=== PATIENT | female | born 1985 | race Caucasian/White ===

== ENCOUNTER 2019-10-18 00:16 | Observation (INO) ==
[2019-10-18 01:19] LABS: Bilirubin,Urine Negative (Negative); Blood,Urine Moderate (Negative); Clarity,Urine Clear (Clear); Color,Urine Yellow (Yellow); Glucose,Urine (UA) Normal (Normal); Ketones,Urine Negative (Negative); Leukocyte Esterase,Urine Moderate (Negative); Nitrite,Urine Negative (Negative); Protein,Urine Trace mg/dL (Neg-Trace); Specific Gravity,Urine > 1.030 (1.010-1.025); Urobilinogen,Urine Normal (Normal)
[2019-10-18 01:21] LABS: Bacteria,Urine Few per hpf (None-Few); Hyaline Casts,Urine None Seen per lpf (None-Few); Squamous Epithelial Cell,Urine Many per lpf (None-Few)
[2019-10-18 01:33] LABS: Amphetamine Screen,Urine Negative ng/mL (Cutoff=1000); Barbiturate Screen,Urine Negative ng/mL (Cutoff=200); Benzodiazepines Screen,Urine Negative ng/mL (Cutoff=200); Cannabinoid Screen,Urine Negative ng/mL (Cutoff = 50); Cocaine Screen,Urine Negative ng/mL (Cutoff= 300); Opiate Screen,Urine Negative ng/mL (Cutoff=300); Phencyclidine Screen,Urine Negative ng/mL (Cutoff=25)
[2019-10-18 01:42] LABS: RBC,Urine 0-3 per hpf (0-3); Transitional Epi Cells,Urine Few per hpf (None-Few)
[2019-10-18 01:47] LABS: Basophils % 0.4 %; Eosinophils # 0.1 K/mcL (0.0-0.6); Eosinophils % 0.5 %; Hematocrit 39.2 % (35.3-44.9); Hemoglobin 12.4 g/dL (11.5-15.4); Immature Granulocytes % 0.3 % (0-4); Lymphocytes # 3.2 K/mcL (0.6-4.6); Lymphocytes % 33.6 %; Mean Corpuscular HGB Conc 31.6 g/dL (31.6-35.5); Mean Corpuscular Hemoglobin 29.9 pg (28.0-33.3); Mean Corpuscular Volume 94.5 fL (83.0-100.0); Mean Platelet Volume 11.4 fL (9.4-12.4); Monocytes # 0.7 K/mcL (0.0-1.3); Monocytes % 7.4 %; Neutrophils # 5.5 K/mcL (1.6-8.9); Platelet Count 274 K/mcL (140-400); Red Blood Count 4.15 M/mcL (3.82-4.97); Red Cell Distribution Width 13.2 % (11.5-14.5); Segmented Neutrophils % 57.8 %; White Blood Count 9.6 K/mcL (4.3-11.1)
[2019-10-18 01:58] LABS: Acetaminophen < 10 mcg/mL (10-20); BUN/Creatinine Ratio 16 (6-26); Blood Urea Nitrogen 18 mg/dL (6-20); Calcium 9.3 mg/dL (8.6-10.3); Carbon Dioxide 23 mEq/L (23-29); Chloride 108 mEq/L (98-107); Chol/HDL Ratio 2.9 (0-4.9); Cholesterol 152 mg/dL (< 200); Ethanol < 10 mg/dL (Less than 10); Glucose 81 mg/dL (70-105); HDL Cholesterol 53 mg/dL (40-59); LDL Cholesterol,Calculated 82 mg/dL (0-99); Osmolality,Calculated 293 (280-300); Potassium 3.6 mEq/L (3.5-5.1); Salicylate < 2.5 mg/dL (15.0-30.0); Sodium 141 mEq/L (136-145); Triglycerides 84 mg/dL (< 150); eGFR For African Americans > 60 (> 60); eGFR For Non-African Americans 55 (> 60)
[2019-10-18 06:41] LABS: Estimated Average Glucose 111 mg/dl
[2019-10-18] MEDS ORDERED: *HR* LORazepam 2 MG/ML VIAL IM PRN (07:24)
[2019-10-18] MEDS ORDERED: *HR* LORazepam 1 MG TABLET PO PRN (07:24)
[2019-10-18] MEDS ORDERED: hydrOXYzine pamoate 25 MG CAPSULE PO PRN (07:24)
[2019-10-18] MEDS ORDERED: Ibuprofen 400 MG TABLET PO PRN (07:24)
[2019-10-18] MEDS ORDERED: Mag Hydrox/Al Hydrox/Simeth 30 ML UDC PO PRN (07:24)
[2019-10-18] MEDS ORDERED: MOM Conc 10 ML UD.LIQ PO PRN (07:24)
[2019-10-18] MEDS ORDERED: Haloperidol Lactate 5 MG/ML VIAL IM PRN (07:24)
[2019-10-18] MEDS ORDERED: traZODone 50 MG TABLET PO PRN (07:24)
[2019-10-18 20:45] VITALS: BP 122/69
== END 2019-10-18 11:56 | disposition other institution (70) ==
LOC: EMEROOARM 00:16 → 1ANU 00:16
PROVIDERS: ADMIT Psychiatry & Neurology Psychiatry; ATTEND Psychiatry & Neurology Psychiatry

== ENCOUNTER 2019-10-18 10:42 | Observation (INO) ==
[2019-10-18] MEDS ORDERED: Ondansetron 4 MG/2 ML VIAL IVP PRN ×2 (13:04→22:02)
[2019-10-18] MEDS ORDERED: Naloxone 0.4 MG/ML INJ IVP PRN ×2 (13:05→22:02)
[2019-10-18] MEDS ORDERED: Ketorolac 15 MG/ML VIAL IVP PRN ×2 (13:05→22:02)
[2019-10-18] MEDS ORDERED: Ketorolac 30 MG/ML VIAL IVP PRN (13:05)
[2019-10-18] MEDS ORDERED: Ringers Solution, Lactated 1,000 ML IVC SCH ×2 (13:30→22:02)
[2019-10-18 13:36] LABS: Basophils # 0.1 K/mcL (0.0-0.2); Basophils % 0.5 %; Eosinophils # 0.1 K/mcL (0.0-0.6); Eosinophils % 0.5 %; Hemoglobin 12.8 g/dL (11.5-15.4); Immature Granulocytes % 0.3 % (0-4); Lymphocytes # 2.3 K/mcL (0.6-4.6); Mean Corpuscular HGB Conc 33.7 g/dL (31.6-35.5); Mean Corpuscular Hemoglobin 30.4 pg (28.0-33.3); Mean Corpuscular Volume 90.3 fL (83.0-100.0); Mean Platelet Volume 11.2 fL (9.4-12.4); Monocytes # 0.7 K/mcL (0.0-1.3); Monocytes % 7.6 %; Neutrophils # 6.3 K/mcL (1.6-8.9); Platelet Count 270 K/mcL (140-400); Red Blood Count 4.21 M/mcL (3.82-4.97); Red Cell Distribution Width 13.2 % (11.5-14.5); Segmented Neutrophils % 67.1 %; White Blood Count 9.4 K/mcL (4.3-11.1)
[2019-10-18 13:44] LABS: INR 1.1
[2019-10-18 13:57] LABS: BUN/Creatinine Ratio 18 (6-26); Blood Urea Nitrogen 17 mg/dL (6-20); Calcium 9.3 mg/dL (8.6-10.3); Carbon Dioxide 23 mEq/L (23-29); Chloride 110 mEq/L (98-107); Glucose 70 mg/dL (70-105); Osmolality,Calculated 294 (280-300); Potassium 3.8 mEq/L (3.5-5.1); Sodium 142 mEq/L (136-145); eGFR For African Americans > 60 (> 60); eGFR For Non-African Americans > 60 (> 60)
[2019-10-18] MEDS ORDERED: levETIRAcetam 250 MG TABLET PO SCH (18:00)
[2019-10-18] MEDS ORDERED: CeFAZolin Syr 2,000MG/20 ML 2,000 MG/20 ML SYRINGE IVPB ONE (18:43)
[2019-10-18] MEDS ORDERED: Ondansetron 4 MG/2 ML VIAL IVP ONE ×2 (19:00→22:02)
[2019-10-18] MEDS ORDERED: *HR* Promethazine 25 MG/ML VIAL IVP PRN ×2 (19:00→22:02)
[2019-10-18] MEDS ORDERED: Lidocaine -MPF 2% 2 ML VIAL ONE (19:29)
[2019-10-18] MEDS ORDERED: *HR* Propofol 200 MG/20 ML VIAL IVP ONE (19:30)
[2019-10-18] MEDS ORDERED: *HR* FentaNYL (PF) 100 MCG/2 ML VIAL ONE (19:30)
[2019-10-18] MEDS ORDERED: *HR* Succinylcholine 200 MG/10 ML VIAL IVP ONE (19:33)
[2019-10-18] MEDS ORDERED: *HR* Rocuronium Bromide 50 MG/5 ML VIAL ONE (19:33)
[2019-10-18] MEDS ORDERED: Bupivacaine/EPI 1:200k 0.5%PF 10 ML VIAL ONE (19:37)
[2019-10-18] MEDS ORDERED: Ondansetron 4 MG/2 ML VIAL ONE (19:55)
[2019-10-18] MEDS ORDERED: Dexamethasone 4 MG/ML VIAL ONE (19:55)
[2019-10-18] MEDS: *HR* HYDROmorphone (PF) 1 MG/ML SYRINGE IVP PRN ×2 (21:14→21:29)
[2019-10-18] MEDS ORDERED: *HR* HYDROmorphone (PF) 1 MG/ML SYRINGE IVP PRN (22:02)
[2019-10-19] MEDS: Ketorolac 30 MG/ML VIAL IVP PRN ×2 (00:12→08:17)
[2019-10-19] MEDS ORDERED: levETIRAcetam 250 MG TABLET PO SCH (06:00)
[2019-10-19] MEDS ORDERED: cephALEXin 500 MG CAPSULE PO SCH (09:00)
[2019-10-19 11:11] VITALS: BP 107/71
== END 2019-10-19 16:40 | disposition home or self-care (01) ==
LOC: 3NENU → SUATTDRO 12:13
PROVIDERS: ADMIT Internal Medicine; ATTEND Internal Medicine

== ENCOUNTER 2020-09-08 16:17 | Observation (INO) ==
[2020-09-08] MEDS ORDERED: Isovue-370 500 ML BOTTLE IVP ONE (16:34)
[2020-09-08] MEDS ORDERED: Dexamethasone 4 MG/ML VIAL IVP ONE (16:34)
[2020-09-08] MEDS ORDERED: Ampicillin/Sulbactam 3,000 MG in 0.9 % Sodium Chloride Mini Bag 100 ML IVPB ONE (16:34)
[2020-09-08 17:11] LABS: Basophils # 0.1 K/mcL (0.0-0.2); Basophils % 0.4 %; Eosinophils % 0.2 %; Hematocrit 36.9 % (35.3-44.9); Hemoglobin 11.9 g/dL (11.5-15.4); Immature Granulocytes % 0.5 % (0-4); Lymphocytes # 1.4 K/mcL (0.6-4.6); Lymphocytes % 10.1 %; Mean Corpuscular HGB Conc 32.2 g/dL (31.6-35.5); Mean Corpuscular Hemoglobin 29.2 pg (28.0-33.3); Mean Corpuscular Volume 90.4 fL (83.0-100.0); Mean Platelet Volume 11.3 fL (9.4-12.4); Monocytes # 1.1 K/mcL (0.0-1.3); Monocytes % 8.2 %; Neutrophils # 10.9 K/mcL (1.6-8.9); Platelet Count 205 K/mcL (140-400); Red Blood Count 4.08 M/mcL (3.82-4.97); Segmented Neutrophils % 80.6 %; White Blood Count 13.5 K/mcL (4.3-11.1)
[2020-09-08] MEDS: 0.9 % Sodium Chloride 1,000 ML IVC SCH ×2 (17:17→22:33)
[2020-09-08 17:29] LABS: BUN/Creatinine Ratio 15 (6-26); Blood Urea Nitrogen 12 mg/dL (6-20); Calcium 8.9 mg/dL (8.6-10.3); Carbon Dioxide 27 mEq/L (23-29); Chloride 104 mEq/L (98-107); Glucose 86 mg/dL (70-105); Osmolality,Calculated 287 (280-300); Potassium 3.5 mEq/L (3.5-5.1); Sodium 139 mEq/L (136-145); eGFR For African Americans > 60 (> 60); eGFR For Non-African Americans > 60 (> 60)
[2020-09-08 18:18] LABS: C-Reactive Protein 130 mg/L (Less than 10)
[2020-09-08] MEDS ORDERED: Lidocaine Viscous Oral Soln 15 ML SOLUTION MM ONE (18:38)
[2020-09-08] MEDS ORDERED: 0.9 % Sodium Chloride 1,000 ML IVC ONE (20:16)
[2020-09-09] MEDS ORDERED: Naloxone 0.4 MG/ML INJ IVP PRN (00:09)
[2020-09-09] MEDS ORDERED: Ondansetron 4 MG/2 ML VIAL IVP PRN (00:09)
[2020-09-09] MEDS ORDERED: 0.9 % Sodium Chloride 1,000 ML IVC SCH (00:15)
[2020-09-09] MEDS ORDERED: Acetaminophen 325 MG TABLET PO PRN (00:36)
[2020-09-09] MEDS: Ampicillin/Sulbactam 3,000 MG in 0.9 % Sodium Chloride Mini Bag 100 ML IVPB SCH ×4 (00:47→16:52)
[2020-09-09] MEDS: methylPREDNISolone 125 MG/2 ML VIAL IVP SCH ×2 (00:47→05:53)
[2020-09-09 02:41] LABS: Hemoglobin 10.9 g/dL (11.5-15.4); Mean Corpuscular HGB Conc 32.1 g/dL (31.6-35.5); Mean Corpuscular Hemoglobin 29.5 pg (28.0-33.3); Mean Corpuscular Volume 92.1 fL (83.0-100.0); Mean Platelet Volume 11.5 fL (9.4-12.4); Platelet Count 217 K/mcL (140-400); Red Blood Count 3.69 M/mcL (3.82-4.97); Red Cell Distribution Width 12.7 % (11.5-14.5); White Blood Count 12.5 K/mcL (4.3-11.1)
[2020-09-09 03:02] LABS: BUN/Creatinine Ratio 21 (6-26); Blood Urea Nitrogen 13 mg/dL (6-20); Calcium 8.1 mg/dL (8.6-10.3); Carbon Dioxide 18 mEq/L (23-29); Chloride 108 mEq/L (98-107); Glucose 92 mg/dL (70-105); Osmolality,Calculated 284 (280-300); Potassium 3.9 mEq/L (3.5-5.1); Sodium 137 mEq/L (136-145); eGFR For African Americans > 60 (> 60); eGFR For Non-African Americans > 60 (> 60)
[2020-09-09] MEDS: *HR* Heparin 5,000 UNIT/ML VIAL SQ SCH ×2 (05:53→16:52)
[2020-09-09] MEDS: 0.9 % Sodium Chloride 1,000 ML IVC SCH ×2 (05:54→12:49)
[2020-09-09] MEDS: levETIRAcetam 250 MG TABLET PO SCH ×2 (08:37→20:01)
[2020-09-09] MEDS: Gabapentin 300 MG CAPSULE PO SCH ×2 (08:37→20:01)
[2020-09-09] MEDS: Cholecalciferol (D-3) 1,000 UNIT (25MCG) TABLET PO SCH (10:43)
[2020-09-10] MEDS: Ampicillin/Sulbactam 3,000 MG in 0.9 % Sodium Chloride Mini Bag 100 ML IVPB SCH ×2 (00:30→05:51)
[2020-09-10 01:11] LABS: Acinetobacter baumannii by PCR Not Detected (Not Detect); Candida albicans by PCR Not Detected (Not Detect); Candida glabrata by PCR Not Detected (Not Detect); Candida krusei by PCR Not Detected (Not Detect); Candida parapsilosis by PCR Not Detected (Not Detect); Candida tropicalis by PCR Not Detected (Not Detect); Enterobacter cloacae Cmplx PCR Not Detected (Not Detect); Enterobacteriaceae by PCR Not Detected (Not Detect); Enterococcus by PCR Not Detected (Not Detect); Escherichia coli by PCR Not Detected (Not Detect); Klebsiella oxytoca by PCR Not Detected (Not Detect); Klebsiella pneumoniae by PCR Not Detected (Not Detect); Proteus by PCR Not Detected (Not Detect); Pseudomonas aeruginosa by PCR Not Detected (Not Detect); Serratia marcescens by PCR Not Detected (Not Detect); Staphylococcus aureus by PCR Not Detected (Not Detect); Streptococcus agalactiae(B)PCR Not Detected (Not Detect); Streptococcus by PCR Not Detected (Not Detect); Streptococcus pneumoniae PCR Not Detected (Not Detect); Streptococcus pyogenes (A) PCR Not Detected (Not Detect); blaKPC Carbapenem-Resist Gene Not Detected (Not Detect); mecA Methicillin-Resist Gene Not Detected (Not Detect); vanA/B Vancomycin-Resist Genes Not Detected (Not Detect)
[2020-09-10 01:12] LABS: Staphylococcus by PCR DETECTED (Not Detect)
[2020-09-10 05:03] LABS: Basophils % 0.1 %; Hematocrit 29.5 % (35.3-44.9); Hemoglobin 9.5 g/dL (11.5-15.4); Immature Granulocytes % 0.5 % (0-4); Lymphocytes # 2.6 K/mcL (0.6-4.6); Lymphocytes % 29.7 %; Mean Corpuscular HGB Conc 32.2 g/dL (31.6-35.5); Mean Corpuscular Hemoglobin 29.1 pg (28.0-33.3); Mean Corpuscular Volume 90.5 fL (83.0-100.0); Mean Platelet Volume 11.1 fL (9.4-12.4); Monocytes # 0.6 K/mcL (0.0-1.3); Monocytes % 6.7 %; Neutrophils # 5.5 K/mcL (1.6-8.9); Platelet Count 194 K/mcL (140-400); Red Blood Count 3.26 M/mcL (3.82-4.97); Red Cell Distribution Width 12.6 % (11.5-14.5); White Blood Count 8.8 K/mcL (4.3-11.1)
[2020-09-10 05:23] LABS: BUN/Creatinine Ratio 18 (6-26); Blood Urea Nitrogen 12 mg/dL (6-20); Calcium 8.1 mg/dL (8.6-10.3); Carbon Dioxide 24 mEq/L (23-29); Chloride 110 mEq/L (98-107); Glucose 102 mg/dL (70-105); Magnesium 1.9 mg/dL (1.6-2.6); Osmolality,Calculated 286 (280-300); Phosphorous 2.1 mg/dL (2.7-4.5); Potassium 3.8 mEq/L (3.5-5.1); Sodium 138 mEq/L (136-145); eGFR For African Americans > 60 (> 60); eGFR For Non-African Americans > 60 (> 60)
[2020-09-10] MEDS: *HR* Heparin 5,000 UNIT/ML VIAL SQ SCH (05:52)
[2020-09-10] MEDS: Cholecalciferol (D-3) 1,000 UNIT (25MCG) TABLET PO SCH (09:44)
[2020-09-10] MEDS: levETIRAcetam 250 MG TABLET PO SCH (09:45)
[2020-09-10] MEDS: Gabapentin 300 MG CAPSULE PO SCH (09:45)
[2020-09-10 11:16] VITALS: BP 116/79
== END 2020-09-10 11:50 | disposition home or self-care (01) ==
LOC: 3BNU 16:17 → EMEROOARM 16:17 → SUATTDRO 20:42 → 3BNU 21:10
PROVIDERS: ADMIT Internal Medicine; ATTEND Internal Medicine